=== PATIENT | male | born 2000 ===

== ENCOUNTER → 2020-09-22 09:44 | Outpatient (RCR) | payer OTHER, SELFPAY ==
--- NOTE | 2020-09-22 09:26 | PC.NURSE ---
Pt did not attend community meeting on his first day. Tw called pt and his mother answered stating that he was overwhelmed at this time as he has been talking to so many people . Mother Roopa (emergency contact) stated that he wants to do the program, just at a later date. Emailed the intake number to Roopa per her request. [email or web address] Informed that pt would have to call intake and rescheduled the intake assessment when he was ready.
== END | disposition home or self-care (01) ==
LOC: HO.PHPA 09-21 13:30
PROVIDERS: PCP Pediatrics; Visit Provider Psychiatry & Neurology Psychiatry
DX: F33.2 Major depressive disorder, recurrent severe without psychotic features (principal); F10.20 Alcohol dependence, uncomplicated
CPT/HCPCS: 90791